=== PATIENT | male | born 1950 | race African-American/Black ===

== ENCOUNTER 2025-02-17 16:52 | Emergency (ER) | payer MEDICARE ==
[~2025-02-17] VITALS: Ht 167.6 cm; Wt 78.0 kg
[2025-02-17] MEDS ORDERED: MIDODRINE HCL (5MG) 5 MG TABLET ONE (17:13)
[2025-02-17] MEDS: MIDODRINE HCL (5MG) 5 MG TABLET PO STA (17:19)
[2025-02-17] MEDS: IV NS 0.9% 1,000 ML BAG IV ONE (17:19)
[2025-02-17 17:20] LABS: BASOPHILS # (AUTO) 0.1 K/uL (0.0-0.2); BASOPHILS % (AUTO) 1.7 % (0.0-2.0); EOSINOPHILS # (AUTO) 0.1 K/uL (0.0-0.7); EOSINOPHILS % (AUTO) 2.4 % (0.0-6.0); HEMATOCRIT 33 % (39-51); LYMPHOCYTES % (AUTO) 22.1 % (20.0-44.0); MEAN CORPUSCULAR HEMOGLOBIN 30 PG (26.0-33.0); MEAN CORPUSCULAR HGB CONC 34 g/dl (31.0-36.0); MEAN CORPUSCULAR VOLUME 89 fL (80-96); MONOCYTES # (AUTO) 0.5 K/uL (0.1-1.30); MONOCYTES % (AUTO) 10.9 % (2.0-12.0); NEUTROPHILS # (AUTO) 2.9 K/uL (1.8-8.9); NEUTROPHILS % (AUTO) 62.9 % (43.0-81.0); PLATELET COUNT (AUTO) 235 K/uL (150-450); RED BLOOD CELL COUNT(AUTO) 3.67 MIL/uL (4.5-6.0); RED CELL DISTRIBUTION WIDTH 17.8 % (11.5-15.0); WHITE BLOOD COUNT (AUTO) 4.6 K/uL (4.3-11.0)
[2025-02-17 17:36] LABS: CALCIUM, SERUM 9.4 mg/dL (8.5-10.1); CARBON DIOXIDE 31 mmol/L (21-32); CHLORIDE 96 mmol/L (98-107); GLUCOSE 135 mg/dL (74-106); SODIUM SERUM 135 mmol/L (136-145); UREA NITROGEN, BLOOD 75 mg/dL (7-18)
[2025-02-17 17:52] LABS: ALANINE AMINOTRANSFERASE 15 U/L (12-78); ALBUMIN 3.2 g/dL (3.4-5.0); ALKALINE PHOSPHATASE 169 U/L (46-116); ASPARTATE AMINOTRANSFERASE 16 U/L (15-37); BILIRUBIN,DIRECT 0.9 mg/dL (0.0-0.2); BILIRUBIN,TOTAL 1.4 mg/dL (0.2-1.0)
[2025-02-17 17:53] LABS: MAGNESIUM 2.7 mg/dL (1.8-2.4)
[2025-02-17 17:54] LABS: THYROID STIMULATING HORMONE 3.29 uIU/mL (0.358-3.74)
[2025-02-17 18:15] LABS: INR 1.24 (0.91-1.10); PARTIAL THROMBOPLASTIN TIME 30.8 SEC (24.3-34.3)
[2025-02-17 20:29] VITALS: BP 97/56; TEMP 97; O2SAT 100
== END 2025-02-17 20:25 | disposition home or self-care (01) ==
LOC: ER 16:55
DX: I95.9 Hypotension, unspecified (principal); D64.9 Anemia, unspecified; E86.0 Dehydration; E88.09 Other disorders of plasma-protein metabolism, not elsewhere classified; I50.9 Heart failure, unspecified; N17.9 Acute kidney failure, unspecified; Z95.810 Presence of automatic (implantable) cardiac defibrillator
CPT/HCPCS: 99285; 96360; 71045; 93005; 85025; 80048; 87040 ×2; 80076; 83735; 84100; 36415; 84443; 84484; 85730; 86850; 82962; J7030